=== PATIENT | female | born 1975 | race Caucasian/White ===

== ENCOUNTER 2018-03-06 03:39 | Emergency (ER) | payer MEDICAID ==
[~2018-03-06] VITALS: Ht 162.6 cm; Wt 87.2 kg
[2018-03-06 03:51] VITALS: Ht 162.6 cm; Wt 87.2 kg
[2018-03-06 06:31] VITALS: BP 111/57
== END 2018-03-06 06:48 | disposition home or self-care (01) ==
LOC: ED 03:39
DX: N39.0 Urinary tract infection, site not specified (principal); Z90.710 Acquired absence of both cervix and uterus
CPT/HCPCS: J0696; J1885